=== PATIENT | female | born 1985 | race Caucasian/White ===

== ENCOUNTER 2017-10-07 18:33 | Emergency (ER) | payer OTHER, SELFPAY ==
[2017-10-07 18:39] VITALS: BP 121/71; PULSE 96; RESP 18; TEMP 35.9; O2SAT 100; BMI 21.5
[2017-10-07 19:42] LABS: Strep Grp A by PCR Rapid Negative
--- NOTE | 2017-10-07 19:51 | ED.URI ---
HPI - URI/Sore Throat <Pippa Chan PA-C - Last Filed: 10/07/17 22:03> General Chief Complaint: Upper Respiratory Symptoms Stated Complaint: PROBLEMS WITH THROAT Time Seen by Provider: 10/07/17 18:38 Source: patient Mode of arrival: ambulatory Limitations: no limitations History of Present Illness HPI Narrative: This 32-year-old female comes in with complaints of 2-3 day history of dry mouth and feeling like there are stones in her tonsils that are falling and dissolving in her throat. She feels like there is also thick drainage going down her throat continuously to the point that it has become painful and hard to clear her throat. She states that she could feel a sharp pain briefly low in her throat and upper chest after trying to swallow just prior to arrival here. She felt warm earlier, has not taken her temperature. She states that she is taking plenty of fluids without problem. She denies earache or sinus pressure, but states that she has felt briefly dizzy at times when she 1st stands up, then resolved. She currently denies any cough, chest pain, wheeze or dyspnea. No pain elsewhere such as the extremities. She states that she had similar symptoms previously in April after she got immunizations. She denies any recent travel or known exposures. She states that she was actually able to retrieve 1 of the tonsillar stones and tried to break it apart and noted it was very malodorous. She already has an appointment with ENT on for this. Related Data Previous Rx's Medication Instructions Recorded amoxicillin 500 mg PO TID #20 cap 10/07/17 lidocaine HCl [Lidocaine Viscous] 15 ml MM Q4-6H PRN #150 ml 10/07/17 naproxen 500 mg PO BID #10 tab 10/07/17 Allergies Allergy/AdvReac Type Severity Reaction Status Date / Time No Known Drug Allergies Allergy Verified 10/07/17 18:50 Review of Systems <Pippa Chan PA-C - Last Filed: 10/07/17 22:03> Review of Systems All systems reviewed & are unremarkable except as noted in HPI and below PFSH <SANDOR Wagner Last Filed: 10/07/17 22:03> Comment: Denies ETOH or street drug Exam <Pippa Chan PA-C - Last Filed: 10/07/17 22:03> Narrative Exam Narrative: GENERAL APPEARANCE: Patient sitting comfortably, in no distress. HEAD: No sinus TTP. EYES: PERRL, EOMI. EARS: Normal auditory canals, TMS intact with normal light reflexes. ORAL CAVITY: Normal oropharynx. THROAT: Erythematous, enlarged tonsils with some pitting and exudate visible NECK/THYROID: Neck supple, full range of motion, tender anterior cervical nodes LUNGS: Clear to auscultation bilaterally, no cough on exam. HEART: RRR without murmur, nl S1, S2, no S3 or S4. EXTREMITIES: No edema or cyanosis Initial Vital Signs Initial Vital Signs: Vital Signs Temperature 96.7 F L 10/07/17 18:39 Pulse Rate 96 H 10/07/17 18:39 Respiratory Rate 18 10/07/17 18:39 Blood Pressure 121/71 H 10/07/17 18:39 Pulse Oximetry 100 10/07/17 18:39 <Clyde Walker DO - Last Filed: 10/07/17 23:46> Initial Vital Signs Initial Vital Signs: Vital Signs Temperature 96.7 F L 10/07/17 18:39 Pulse Rate 96 H 10/07/17 18:39 Respiratory Rate 18 10/07/17 18:39 Blood Pressure 121/71 H 10/07/17 18:39 Pulse Oximetry 100 10/07/17 18:39 Course <Pippa Chan PA-C - Last Filed: 10/07/17 22:03> Additional Information: Patient does have a little bit of exudate and probable tonsillar stones. Will start amoxicillin along with anti-inflammatory and viscous lidocaine to see if these are helpful prior to her seeing ENT. Her rapid strep test is negative. She agrees to return if any acutely worsening symptoms over the weekend. Orders Ordered: ED Orders 10/07/17 18:42 EKG-12 Lead Routine 10/07/17 18:50 Strep Grp A by PCR Rapid Stat Discontinued Medications Amoxicillin ( Trimox 250mg Prepack) 1 bottle MISC SEEINSTR ONE Stop: 10/07/17 20:53 Last Admin: 10/07/17 21:08 Dose: 1 bottle Al Hydrox/Mg Hydrox/Simethicone 20 ml/ Lidocaine HCl 15 ml 0 ml PO NOW ONE Stop: 10/07/17 20:07 Last Admin: 10/07/17 20:15 Dose: 35 ml Ibuprofen (Advil) 800 mg PO NOW ONE Stop: 10/07/17 20:53 Last Admin: 10/07/17 21:05 Dose: 800 mg Vital Signs - 8 hr 10/07/17 18:39 10/07/17 19:53 10/07/17 21:05 Temperature 96.7 F L 98.9 F 97.4 F L Pulse Rate 96 H 64 60 Respiratory Rate 18 16 16 Blood Pressure 121/71 H Blood Pressure [Left Arm] 101/64 96/67 Pulse Oximetry 100 100 100 10/07/17 21:23 Temperature 97.4 F L Pulse Rate 60 Respiratory Rate 16 Blood Pressure 96/67 Blood Pressure [Left Arm] Pulse Oximetry 100 <Clyde Walker DO - Last Filed: 10/07/17 23:46> Orders Ordered: ED Orders 10/07/17 18:42 EKG-12 Lead Routine 10/07/17 18:50 Strep Grp A by PCR Rapid Stat Discontinued Medications Amoxicillin ( Trimox 250mg Prepack) 1 bottle MISC SEEINSTR ONE Stop: 10/07/17 20:53 Last Admin: 10/07/17 21:08 Dose: 1 bottle Al Hydrox/Mg Hydrox/Simethicone 20 ml/ Lidocaine HCl 15 ml 0 ml PO NOW ONE Stop: 10/07/17 20:07 Last Admin: 10/07/17 20:15 Dose: 35 ml Ibuprofen (Advil) 800 mg PO NOW ONE Stop: 10/07/17 20:53 Last Admin: 10/07/17 21:05 Dose: 800 mg Vital Signs - 8 hr 10/07/17 18:39 10/07/17 19:53 10/07/17 21:05 Temperature 96.7 F L 98.9 F 97.4 F L Pulse Rate 96 H 64 60 Respiratory Rate 18 16 16 Blood Pressure 121/71 H Blood Pressure [Left Arm] 101/64 96/67 Pulse Oximetry 100 100 100 10/07/17 21:23 Temperature 97.4 F L Pulse Rate 60 Respiratory Rate 16 Blood Pressure 96/67 Blood Pressure [Left Arm] Pulse Oximetry 100 MDM - URI/Sore Throat <Pippa Chan PA-C - Last Filed: 10/07/17 22:03> Lab Data Lab Results 10/07/17 Range/Units 18:50 Group A Strep (PCR) Negative <Clyde Walker, - Last Filed: 10/07/17 23:46> Lab Data Lab Results 10/07/17 Range/Units 18:50 Group A Strep (PCR) Negative Discharge Plan Departure Patient Disposition: Home Clinical Impression: Acute tonsillitis, Calculus of tonsil Discharge Date/Time: 10/07/17 21:25 Interventions: ED Discharge Assessment Last Done: 10/07/17 21:23 Instructions: DI for Pharyngitis/Tonsillopharyngitis -- Adult Activity Restrictions/Additional Instructions: Please return if you have any acutely worsening symptoms. We have given you a dose of ibuprofen for tonight to help with inflammation, and also please start the antibiotic amoxicillin. Take 2 of the pills that we gave you every 8 hr. Your prescription will only be 1 pill every 8 hr. I have also prescribed some lidocaine that you can gargle to help with your throat pain as well as naproxen (similar to [id number] Aleve) to help with pain and inflammation. Please keep your appointment with the catapult and arresting gear officer next week, and at that point you will have been on the antibiotic for several days so they can assess your progress. Prescriptions: New amoxicillin 500 mg capsule 500 mg PO TID Qty: 20 RF: 0 lidocaine HCl [Lidocaine Viscous] 2 % solution 15 ml MM Q4-6H PRN (Reason: mouth pain) Qty: 150 RF: 0 naproxen 500 mg tablet 500 mg PO BID Qty: 10 RF: 0 Referrals: [facility] [Provider Group] [facility] [Provider Group] <Clyde Walker, - Last Filed: 10/07/17 23:46> Cosign ED Attending Jonasature Attestation: I was immediately available in the department for consultation. Documentation has been reviewed. I agree with assessment and plan.
[2017-10-07 19:53] VITALS: BP 101/64; PULSE 64; RESP 16; TEMP 37.2; O2SAT 100
[2017-10-07] MEDS: MAG HYDROX/ALUMINUM/SIMETH SUS 20 ML, LIDOCAINE VISCOUS 2% 15 ML PO (20:15)
[2017-10-07 21:05] VITALS: BP 96/67; PULSE 60; RESP 16; TEMP 36.3; O2SAT 100
[2017-10-07] MEDS: IBUPROFEN 400 MG TABLET 800 MG PO (21:05)
[2017-10-07] MEDS: AMOXICILLIN 250 MG PREPACK 1 BOTTLE MISC (21:08)
[2017-10-07 21:23] VITALS: BP 96/67; PULSE 60; RESP 16; TEMP 36.3; O2SAT 100
== END 2017-10-07 21:25 | disposition home or self-care (01) ==
PROVIDERS: Emergency Provider Internal Medicine
DX: J03.90 Acute tonsillitis, unspecified (principal); J35.8 Other chronic diseases of tonsils and adenoids; R42 Dizziness and giddiness
CPT/HCPCS: 87651; 93005; 93010; 99282; 99284

== ENCOUNTER 2018-06-15 14:35 | Emergency (ER) | payer OTHER, SELFPAY ==
[2018-06-15 14:40] VITALS: PULSE 93; RESP 14; TEMP 37.2; O2SAT 100; BMI 20.7
[2018-06-15 14:47] VITALS: BP 93/64; PULSE 93; RESP 14; TEMP 37.2; O2SAT 100
--- NOTE | 2018-06-15 16:34 | DI.RAD.S_ITS ---
PROCEDURE: XR CHEST 2V INDICATIONS: foreign body sensation TECHNIQUE: 2 views of the chest were acquired. COMPARISON: None. FINDINGS: Surgical changes and devices: None. Lungs and pleura: Lungs are clear. No pleural effusions or pneumothorax. Mediastinum: Mediastinal contours are normal. Heart size is normal. Bones and chest wall: No suspicious bony abnormalities. Soft tissues appear unremarkable. IMPRESSION: No acute process. Dictated by: Nicol Cotter M.D. on 06/15/2018 at 16:59 Approved by: Nicol Cotter M.D. on 06/15/2018 at 16:59
--- NOTE | 2018-06-15 16:50 | PC.NURSE ---
Patient reports sensation that something is stuck in her throat Has a long history of similar symptoms. Has had endoscopy, chest CTA. Patient states the dry mouth and difficulty passing even soft foods has increased since tonsillectomy. Patient feels like food is getting stuck around her chest level. Requiring lots of water to push things through. patient is speaking in complete and full sentence and tolerating saliva.
[2018-06-15] MEDS: KETOROLAC 60 MG/2 ML VIAL IM (18:04)
[2018-06-15 19:11] VITALS: BP 95/63; PULSE 73; RESP 17; O2SAT 98
--- NOTE | 2018-06-15 20:35 | ED_ITS ---
HPI - Neck Pain/Injury <RODERICK Rosario - Last Filed: 06/15/18 20:42> General Chief Complaint: Neck Pain/Injury Stated Complaint: Tonsillectomy complications Time Seen by Provider: 06/15/18 16:14 Source: patient and EMS Mode of arrival: EMS Limitations: no limitations History of Present Illness HPI Narrative: The patient is a 32-year-old female former smoker presents with a chief complaint of complications post tonsillectomy. She had a tonsillectomy in early April, and complains of persistent foreign body sensation in her throat. she states she has felt a foreign body sensation in her throat and when she swallows food or liquid for over a year. She has followed up with her ENT Dr Ocampo, he has since referred her to a specialist. However she does not want to wait for the specialist appointment. She denies any fevers nausea vomiting or diarrhea. She states she feels dry mouth. She states she had discomfort and spots of blood after using a water pick earlier today. Related Data Previous Rx's Medication Instructions Recorded ketorolac 10 mg PO Q4-6H PRN #8 tab 06/15/18 prednisone 20 mg PO DAILY #5 tab 06/15/18 Allergies Allergy/AdvReac Type Severity Reaction Status Date / Time No Known Drug Allergies Allergy Verified 06/15/18 14:55 Review of Systems <RODERICK Rosario - Last Filed: 06/15/18 20:42> Review of Systems GENERAL: Denies chills, fatigue, malaise, fever, sweats. HEENT: See HPI RESPIRATORY: Denies dyspnea, cough, wheezing, hemoptysis, sputum. CARDIOVASCULAR: Denies chest pain, palpitations, orthopnea, edema, GASTROINTESTINAL: Denies nausea, vomiting, abdominal pain, diarrhea, constipation, melena. : Denies dysuria, frequency, incontinence, hematuria, urinary retention. MUSCULOSKELETAL: denies weakness, joint pain, or bony pain SKIN: Denies rash, skin lesions, or other NEUROLOGIC: Denies weakness, headache, numbness, change in speech, confusion, seizures, incoordination. PSYCHIATRIC: No concerning psychosocial issues. 12 point review of systems is negative except for those stated above PFSH <RODERICK Rosario - Last Filed: 06/15/18 20:42> Surgical History History of tonsillectomy (Acute) Social History Smoking Status: Former smoker Social History Smoking Status: Former smoker Exam <YASMIN Rosario - Last Filed: 06/15/18 20:42> Narrative Exam Narrative: GENERAL: This is a well-nourished, well-developed patient, no acute distress HEAD: Atraumatic. Normocephalic. No temporal or scalp tenderness. EYES: Pupils equal round and reactive. Extraocular motions intact. No scleral icterus. No injection or drainage. ENT: Nose without bleeding, purulent drainage or septal hematoma. Throat without erythema, bleeding or exudate. Uvula midline. Airway patent. NECK: Trachea midline. No JVD or lymphadenopathy. Supple, nontender, no meningeal signs. CARDIOVASCULAR: Regular rate and rhythm without murmurs, gallops, or rubs. RESPIRATORY: Clear to auscultation. Breath sounds equal bilaterally. No wheezes, rales, or rhonchi. No cough. No increased respiratory effort. GASTROINTESTINAL: Abdomen soft, non-tender, nondistended. No hepato- splenomegaly, or palpable masses. No guarding. EXTREMITIES: No clubbing, cyanosis, or edema. No joint tenderness, effusion, or edema noted. BACK: Nontender without deformity or crepitance. No flank tenderness. NEURO: AOx3. SKIN: No rash or erythema. Initial Vital Signs Initial Vital Signs: Vital Signs Temperature 98.9 F 06/15/18 14:40 Pulse Rate 93 H 06/15/18 14:40 Respiratory Rate 14 06/15/18 14:40 Pulse Oximetry 100 06/15/18 14:40 <Vilma Perez DO - Last Filed: 06/23/18 07:11> Initial Vital Signs Initial Vital Signs: Vital Signs Temperature 98.9 F 06/15/18 14:40 Pulse Rate 93 H 06/15/18 14:40 Respiratory Rate 14 06/15/18 14:40 Pulse Oximetry 100 06/15/18 14:40 Course <YASMIN Rosario - Last Filed: 06/15/18 20:42> Orders Ordered: Discontinued Medications Ketorolac Tromethamine (Toradol) 60 mg IM NOW ONE Stop: 06/15/18 17:49 Last Admin: 06/15/18 18:04 Dose: 60 mg Vital Signs - 8 hr 06/15/18 14:40 06/15/18 14:47 06/15/18 19:11 Temperature 98.9 F 98.9 F Pulse Rate 93 H 93 H 73 Respiratory Rate 14 14 17 Blood Pressure [Left Arm] 93/64 95/63 Pulse Oximetry 100 100 98 <Vilma Perez DO - Last Filed: 06/23/18 07:11> Orders Ordered: Discontinued Medications Ketorolac Tromethamine (Toradol) 60 mg IM NOW ONE Stop: 06/15/18 17:49 Last Admin: 06/15/18 18:04 Dose: 60 mg Vital Signs - 8 hr 06/15/18 14:40 06/15/18 14:47 06/15/18 19:11 Temperature 98.9 F 98.9 F Pulse Rate 93 H 93 H 73 Respiratory Rate 14 14 17 Blood Pressure [Left Arm] 93/64 95/63 Pulse Oximetry 100 100 98 MDM - Neck Pain/Injury <YASMIN Rosario - Last Filed: 06/15/18 20:42> Imaging Data Chest x-ray: Radiologist's impression: [place] [address] XRay Report Signed Patient: Farzana RaoR#: [id number] : 1985Acct:[id number] Age/Sex: 32 / FDate of Service: 06/15/18 Loc: ED Accession Number: [id number] Procedure: XR chest 2V Ordering Provider: Vilma Parkinson PROCEDURE: XR CHEST 2V INDICATIONS: foreign body sensation TECHNIQUE: 2 views of the chest were acquired. COMPARISON: None. FINDINGS: Surgical changes and devices: None. Lungs and pleura: Lungs are clear. No pleural effusions or pneumothorax. Mediastinum: Mediastinal contours are normal. Heart size is normal. Bones and chest wall: No suspicious bony abnormalities. Soft tissues appear unremarkable. IMPRESSION: No acute process. Dictated by: Nicol Cotter M.D. on 06/15/2018 at 16:59 Approved by: Nicol Cotter M.D. on 06/15/2018 at 16:59 MDM Narrative Medical decision making narrative: The patient is a 32-year-old female who presents with foreign body sensation 2 months post tonsillectomy. She complains of chronic difficulty swallowing for which she has been referred to an ENT and had a scope done. She also went to another facility recently and had an x-ray as well as a CT scan and lab work. I reviewed those results. The patient was given Toradol in the emergency department, which alleviated some of her discomfort. She declined Cepacol lozenge, lidocaine, Maalox, GI cocktail. Given that Toradol helped, I did give her prescription for 2 days where as well as a steroid burst to help with any inflammation. I discussed at length that she needs to follow up with ENT as scheduled as well as GI as also scheduled. Encouraged her to follow up with her primary care provider as well. patient has no questions or concerns upon discharge is hemodynamically stable and drinking fluids before discharge. Discharge Plan Departure Patient Disposition: Home Clinical Impression: Pharyngitis Qualifiers: Pharyngitis/tonsillitis etiology: unspecified etiology Qualified Code(s): J02.9 - Acute pharyngitis, unspecified Difficulty in swallowing Qualifiers: Dysphagia type: unspecified Qualified Code(s): R13.10 - Dysphagia, unspecified Discharge Date/Time: 06/15/18 19:28 Interventions: ED Discharge Assessment Last Done: 06/15/18 19:27 Instructions: DI for Viral Pharyngitis, Esophageal Dysphagia, Oropharyngeal Dysphagia Activity Restrictions/Additional Instructions: I have given you as prescription of Toradol. Do not combine this with ibuprofen or Aleve or any other NSAIDs. I have also given you a burst of steroids. Please follow up with her ENT as well as a layboy operator as you have scheduled. Until then please eat liquids and/or soft foods. I advise avoiding acid, caffeine, deep fried fatty foods or citrus. Prescriptions: New ketorolac 10 mg tablet 10 mg PO Q4-6H PRN (Reason: pain) Qty: 8 RF: 0 prednisone 20 mg tablet 20 mg PO DAILY Qty: 5 RF: 0 <Vilma Perez DO - Last Filed: 06/23/18 07:11> Cosign ED Attending Jonasature Attestation: I was immediately available in the department for consultation. This documentation has been reviewed and I agree with assessment and plan. Supervised by Vilma Perez, DO
== END 2018-06-15 19:28 | disposition home or self-care (01) ==
PROVIDERS: Emergency Provider Nurse Practitioner Family
DX: J02.9 Acute pharyngitis, unspecified (principal); R13.10 Dysphagia, unspecified
CPT/HCPCS: 71046; 96372; 99282; 99283; J1885

== ENCOUNTER → 2020-04-23 16:15 | Outpatient (CLI) | payer OTHER, SELFPAY ==
--- NOTE | 2020-04-23 | DI.MRI.S_ITS ---
PROCEDURE: MR LUMBAR SPINE WO CON INDICATIONS: low back pain TECHNIQUE: Noncontrast sagittal T1 spin echo and T2 fast echo, sagittal STIR, axial T1 and T2 fast spin echo through the lumbar spine. In cases with scoliosis, additional coronal T2 fast spin echo may be performed. COMPARISON: None. FINDINGS: Image quality: Excellent. Alignment and Curvature: There is normal bony alignment. Bone Marrow: Marrow is of normal overall signal. No acute vertebral body compression fractures. Spinal Cord: Conus medullaris terminates at the L1 level. Visualized cord demonstrates normal signal and size. Paraspinous Soft Tissues: No paravertebral masses. T12-L1: Normal appearance. L1-L2: Normal appearance. L2-L3: Normal appearance. L3-L4: Normal appearance. L4-L5: Normal appearance. L5-S1: Normal appearance. IMPRESSION: 1. No significant central canal or foraminal narrowing. 2. No significant disc bulge. Dictated by: Didi Patel M.D. on 04/24/2020 at 9:50 Approved by: Didi Patel M.D. on 04/24/2020 at 9:53
== END ==
PROVIDERS: Referring Provider Student in an Organized Health Care Education/Training Program; Visit Provider Student in an Organized Health Care Education/Training Program
DX: M54.5 Low back pain (principal)
CPT/HCPCS: 72148